=== PATIENT | female | born 1955 | race American Indian/Alaskan Native ===

== ENCOUNTER 2018-06-11 13:22 | Outpatient (CLI) | payer MEDICAID ==
--- NOTE | 2018-06-11 14:35 | XRay Report ---
RIGHT HUMERUS: History: Pain. AP and lateral views of the humerus demonstrate normal mineralization and contours for this patient's age. No destructive changes are noted and the adjacent soft tissues are normal. IMPRESSION: Normal right humerus.
--- NOTE | 2018-06-11 14:36 | XRay Report ---
RIGHT SHOULDER, 3 VIEWS: HISTORY: right shoulder pain. Normal bone mineralization. No acute osseous injury or joint pathology is detected. The soft tissues are unremarkable. IMPRESSION: Right shoulder within normal limits.
--- NOTE | 2018-06-11 14:36 | XRay Report ---
RIGHT FOREARM: History: Pain. AP and lateral views of the forearm demonstrate normal mineralization and contours for this patient's age. No destructive changes are noted and the adjacent soft tissues are normal. Previous internal fixation of an ulnar fracture is noted and unremarkable. IMPRESSION: Unremarkable right forearm.
== END 2018-06-11 13:23 | disposition home or self-care (01) ==
LOC: XRAY 13:22
PROVIDERS: ATTEND Internal Medicine
DX: S52.201D Unspecified fracture of shaft of right ulna, subsequent encounter for closed fracture with routine healing (principal); M25.511 Pain in right shoulder; M79.601 Pain in right arm; Z88.6 Allergy status to analgesic agent; X58.XXXD Exposure to other specified factors, subsequent encounter

== ENCOUNTER 2020-05-09 09:37 | Emergency (ER) | payer MEDICAID ==
[2020-05-09 10:10] VITALS: BP 129/56
--- NOTE | 2020-05-09 10:48 | Event Note ---
ED Screening Note Date of service: 05/09/20 Time: 10:47 ED Screening Note: 64 yr old female with pmhx of CAD/OK, and CVA currently on eliquis presents to ED c/o hematuria since yesterday. She reports associated urinary frequency, generalized fatigue and weakness. This initial assessment/diagnostic orders/clinical plan/treatment(s) is/are subject to change based on patients health status, clinical progression and re- assessment by fellow clinical providers in the ED. Further treatment and workup at subsequent clinical providers discretion. Patient/guardian urged not to elope from the ED as their condition may be serious if not clinically assessed and managed. Initial orders include: CBC, CMP, UA
[2020-05-09 11:34] LABS: Alanine Aminotransferase 12 units/L (7-56); Albumin 3.5 g/dL (3.9-5); BUN/Creatinine Ratio 11; Blood Urea Nitrogen 12 mg/dL (7-17); Calcium 9.8 mg/dL (8.4-10.2); Hemolysis Index 5
[2020-05-09 11:38] LABS: Basophils % (Auto) 0.2 % (0.0-1.8); Eosinophils # (Auto) 0.1 K/mm3 (0.0-0.4); Eosinophils % (Auto) 0.7 % (0.0-4.3); Hematocrit 39.5 % (30.3-42.9); Hemoglobin 12.7 gm/dl (10.1-14.3); Lymphocytes # (Auto) 2.1 K/mm3 (1.2-5.4); Lymphocytes % (Auto) 28.1 % (13.4-35.0); Mean Corpuscular HGB Conc 32 % (30-34); Mean Corpuscular Volume 80 fl (79-97); Monocytes # (Auto) 0.9 K/mm3 (0.0-0.8); Monocytes % (Auto) 12.2 % (0.0-7.3); Platelet Count 340 K/mm3 (140-440); Red Blood Count 4.95 M/mm3 (3.65-5.03)
[2020-05-09 12:18] LABS: INR 1.13 (0.87-1.13)
[2020-05-09 12:19] LABS: Partial Thromboplastin Time 34.4 Sec. (24.2-36.6)
--- NOTE | 2020-05-09 12:36 | Emergency Department Report ---
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 Patient presented to the ER complaining of blood in the urine since yesterday. Patient stated that she is taking blood thinner but she does not know the name of it and she did not bring her medication list with her. Patient denied any burning sensation with urine. Patient also denied any abdominal pain or flank pain. Patient denied any hemoptysis, hematemesis, hematochezia or melena. No fever or chills. - Related Data Allergies Allergy/AdvReac Type Severity Reaction Status Date / Time codeine Allergy SHAKING,SWE Unverified 06/11/18 13:23 [facility] ED Review of Systems ROS: Stated complaint: BLOOD IN URINE Other details as noted in HPI Comment: All other systems reviewed and negative Constitutional: denies: chills, fever Respiratory: denies: cough, shortness of breath, SOB with exertion, SOB at rest Cardiovascular: denies: chest pain, palpitations Gastrointestinal: denies: abdominal pain, nausea, vomiting Genitourinary: hematuria. denies: urgency, dysuria, frequency, discharge Musculoskeletal: denies: back pain Neurological: denies: headache, weakness, confusion ED Past Medical Hx - Past Medical History Previous Medical History?: Yes Hx Hypertension: Yes Hx CVA: Yes Hx Diabetes: Yes - Surgical History Past Surgical History?: Yes Hx Open Heart Surgery: Yes (2017) - Social History Smoking Status: Former Smoker Substance Use Type: Alcohol ED Physical Exam - General Limitations: Physical Limitation General appearance: alert, in no apparent distress - Head Head exam: Present: atraumatic, normocephalic, normal inspection - Eye Eye exam: Present: normal appearance, PERRL - ENT ENT exam: Present: normal orophraynx - Neck Neck exam: Present: normal inspection, full ROM. Absent: tenderness, meningismus - Respiratory Respiratory exam: Present: normal lung sounds bilaterally - Cardiovascular Cardiovascular Exam: Present: regular rate, normal rhythm, normal heart sounds - GI/Abdominal GI/Abdominal exam: Present: soft, normal bowel sounds. Absent: distended, tenderness, guarding, rebound, rigid, organomegaly, mass, bruit, pulsatile mass, hernia - Extremities Exam Extremities exam: Present: normal inspection, full ROM, normal capillary refill. Absent: tenderness, pedal edema, calf tenderness - Back Exam Back exam: Present: normal inspection, full ROM. Absent: CVA tenderness (R), CVA tenderness (L) - Neurological Exam Neurological exam: Present: alert, oriented X3, motor sensory deficit (Chronic left upper and lower extremity weakness.), reflexes normal - Psychiatric Psychiatric exam: Present: normal mood - Skin Skin exam: Present: warm, intact, normal color ED Course Vital Signs 05/09/20 10:06 Temperature 98.6 F Pulse Rate 64 Respiratory 18 Rate Blood Pressure 129/56 O2 Sat by Pulse 99 Oximetry ED Medical Decision Making - Lab Data Result diagrams: 05/09/20 10:54 05/09/20 10:54 - Medical Decision Making Patient is 64 years old female with history 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 Patient presented to the ER complaining of blood in the urine since yesterday. Patient stated that she is taking blood thinner but she does not know the name of it and she did not bring her medication list with her. Patient denied any burning sensation with urine. Patient also denied any abdominal pain or flank pain. Patient denied any hemoptysis, hematemesis, hematochezia or melena. No fever or chills. Patient remained stable in the ER. Labs reviewed and is unremarkable except for positive for UTI. Patient given prescription for ciprofloxacin and advised to follow-up with her primary doctor in the next 2 to 3 days and to return to the ER if she develop any new symptoms. Critical care attestation.: If time is entered above; I have spent that time in minutes in the direct care of this critically ill patient, excluding procedure time. ED Disposition Clinical Impression: UTI (urinary tract infection), Hematuria Disposition: TO HOME OR SELFCARE Is pt being admited?: No Condition: Stable Instructions: Urinary Tract Infection, Adult, [id number] Referrals: PRIMARY CARE, [Referring] - 3-5 Days
[2020-05-09 14:40] LABS: Bacteria,Urine 4+ /HPF (Negative); Bilirubin,Urine NEG (Negative); Blood,Urine LG (Negative); Color,Urine Yellow (Yellow); Mucus,Urine 2+ /HPF
[2020-05-09 14:46] LABS: RBC,Urine > 182.0 /HPF (0.0-6.0); WBC,Urine > 182.0 /HPF (0.0-6.0)
== END 2020-05-09 15:46 | disposition home or self-care (01) ==
LOC: ED 09:37
DX: N39.0 Urinary tract infection, site not specified (principal); R31.9 Hematuria, unspecified; I10 Essential (primary) hypertension; E11.9 Type 2 diabetes mellitus without complications; Z86.73 Personal history of transient ischemic attack (TIA), and cerebral infarction without residual deficits; Z98.890 Other specified postprocedural states; Z87.891 Personal history of nicotine dependence; Z88.8 Allergy status to other drugs, medicaments and biological substances
CPT/HCPCS: 36415; 80053; 81001; 85025; 85610; 85730; 87086

== ENCOUNTER 2020-11-20 03:51 | Emergency (ER) | payer MEDICAID ==
--- NOTE | 2020-11-20 05:41 | XRay Report ---
XR foot 2V LT INDICATION: foot pain blunt trauma. COMPARISON: No relevant prior imaging study available. FINDINGS: There is a minimally displaced transverse fracture through the distal shaft of the proximal phalanx o f the third toe. No additional fractures are seen. No significant soft tissue abnormality. IMPRESSION: 1. Proximal phalanx third toe fracture. Signer Name: Bonilla Mas MD Signed: 11/20/2020 5:37 AM Workstation Name: [id number]
--- NOTE | 2020-11-20 08:42 | Emergency Department Report ---
ED General Adult HPI - General Chief complaint: Extremity Injury, Lower Stated complaint: LEFT FOOT/TOE PAIN Time Seen by Provider: 11/20/20 08:09 Source: patient Mode of arrival: Wheelchair Limitations: No Limitations - History of Present Illness Initial comments: 65-year-old -[place] female patient presents with complaints of left foot pain and toenail avulsion x last night. Patient states she fell in the tub and twisted her foot. She denies any head trauma or preceding dizziness/chest pain/shortness of breath. She rates her current pain as a 8/10 in severity. Patient is on blood thinners. She any denies headache. Past medical history includes hypertension, CVA, and diabetes -: Sudden - Related Data Previous Rx's Medication Instructions Recorded Last Taken Type Ciprofloxacin HCl 500 mg PO BID #14 tablet 05/09/20 Unknown Rx Acetaminophen [Acetaminophen TAB] 500 - 1,000 mg PO Q8HR PRN #30 11/20/20 Unknown Rx tablet Mupirocin [Bactroban 2% OINT] 1 applic TP TID 10 Days #1 tube 11/20/20 Unknown Rx cephALEXin [Keflex] 500 mg PO Q12HR 7 Days #14 cap 11/20/20 Unknown Rx traMADoL [Ultram 50 MG tab] 50 mg PO Q6HR PRN #10 tablet 11/20/20 Unknown Rx Allergies Allergy/AdvReac Type Severity Reaction Status Date / Time codeine Allergy SHAKING,SWE Unverified 06/11/18 13:23 [facility] ED Review of Systems ROS: Stated complaint: LEFT FOOT/TOE PAIN Other details as noted in HPI Constitutional: denies: malaise Respiratory: denies: cough, shortness of breath Cardiovascular: denies: chest pain Musculoskeletal: arthralgia Skin: denies: change in color Neurological: denies: headache, weakness, numbness, paresthesias ED Past Medical Hx - Past Medical History Previous Medical History?: Yes Hx Hypertension: Yes Hx CVA: Yes Hx Diabetes: Yes - Surgical History Past Surgical History?: Yes Hx Open Heart Surgery: Yes (2016) - Social History Smoking Status: Former Smoker Substance Use Type: Alcohol - Medications Home Medications: Home Medications Medication Instructions Recorded Confirmed Last Taken Type Ciprofloxacin HCl 500 mg PO BID #14 tablet 05/09/20 Unknown Rx Acetaminophen [Acetaminophen TAB] 500 - 1,000 mg PO Q8HR PRN #30 11/20/20 Unknown Rx tablet Mupirocin [Bactroban 2% OINT] 1 applic TP TID 10 Days #1 tube 11/20/20 Unknown Rx cephALEXin [Keflex] 500 mg PO Q12HR 7 Days #14 cap 11/20/20 Unknown Rx traMADoL [Ultram 50 MG tab] 50 mg PO Q6HR PRN #10 tablet 11/20/20 Unknown Rx ED Physical Exam - General Limitations: No Limitations General appearance: alert, in no apparent distress - Head Head exam: Present: atraumatic, normocephalic - Eye Eye exam: Absent: scleral icterus - Respiratory Respiratory exam: Absent: respiratory distress - Cardiovascular Cardiovascular Exam: Present: regular rate - GI/Abdominal GI/Abdominal exam: Present: soft. Absent: tenderness - Expanded Lower Extremity Exam Left Ankle exam: Present: normal inspection Foot/Toe exam: Present: tenderness (Tenderness to palpation noted to first through fourth digits), nail avulsion (Great toe). Absent: ecchymosis Neuro vascular tendon exam: Present: no vascular compromise. Absent: pulse deficit Gait: Positive: unable to bear weight - Neurological Exam Neurological exam: Present: alert, oriented X3 - Psychiatric Psychiatric exam: Present: normal affect, normal mood - Skin Skin exam: Present: warm, dry, normal color. Absent: rash ED Course Vital Signs 11/20/20 04:32 Temperature 98 F Pulse Rate 79 Respiratory 16 Rate Blood Pressure 180/74 [Right] O2 Sat by Pulse 99 Oximetry ED Medical Decision Making - Radiology Data Radiology results: report reviewed XR foot 2V LT INDICATION: foot pain blunt trauma. COMPARISON: No relevant prior imaging study available. FINDINGS: There is a minimally displaced transverse fracture through the distal shaft of the proximal phalanx of the third toe. No additional fractures are seen. No significant soft tissue abnormality. IMPRESSION: 1. Proximal phalanx third toe fracture. - Medical Decision Making 65-year-old -[place] female patient presents with complaints of left foot pain and toenail avulsion x last night. Patient states she fell in the tub and twisted her foot. She denies any head trauma or preceding dizziness/chest pain/shortness of breath. She rates her current pain as a 8/10 in severity. Patient is on blood thinners. She any denies headache X-ray shows fracture of the third left toe with minimal displacement. Nail avulsion of the left great toe noted on exam. Irrigated and cleaned with Betadine. Neosporin and sterile dressing placed on wound. Patient to follow-up with podiatry within 2 to 3 days. Discussed wound care and signs and symptoms that should prompt immediate return to the emergency department in detail with patient verbalizes understanding. She is otherwise well-appearing and stable for discharge home. Critical care attestation.: If time is entered above; I have spent that time in minutes in the direct care of this critically ill patient, excluding procedure time. ED Disposition Clinical Impression: Avulsion of toenail of left foot Fracture of third toe, left, closed Qualifiers: Encounter type: initial encounter Qualified Code(s): S92.502A - Displaced unspecified fracture of left lesser toe(s), initial encounter for closed fracture Disposition: 01 HOME / SELF CARE / HOMELESS Is pt being admited?: No Condition: Stable Instructions: Toe Fracture, [id number] Prescriptions: Acetaminophen [Acetaminophen TAB] 500 - 1,000 mg PO Q8HR PRN #30 tablet PRN Reason: pain Mupirocin [Bactroban 2% OINT] 1 applic TP TID 10 Days #1 tube cephALEXin [Keflex] 500 mg PO Q12HR 7 Days #14 cap traMADoL [Ultram 50 MG tab] 50 mg PO Q6HR PRN #10 tablet PRN Reason: Pain , Severe (7-10) Referrals: [facility] [Provider Group] - 2-3 Days SILVIA HARTLEY DPM [Staff Physician] - 2-3 Days (Toe fracture, nail avulsion )
[2020-11-20] MEDS ORDERED: ACETAMINOPHEN 500 MG TAB PO STA (08:44)
[2020-11-20] MEDS ORDERED: HYDROcodone/ACETAMINOPHEN 5-325 MG TAB PO ONE (08:50)
[2020-11-20] MEDS ORDERED: NEOMY 3.5 MG/BACIT 400 UNITS/POLY B 5000 UNITS/GM OINT PACKET TP STA (10:10)
[2020-11-20 11:14] VITALS: BP 159/71
== END 2020-11-20 11:14 | disposition home or self-care (01) ==
LOC: ED 03:51
DX: S92.512A Displaced fracture of proximal phalanx of left lesser toe(s), initial encounter for closed fracture (principal); S91.209A Unspecified open wound of unspecified toe(s) with damage to nail, initial encounter; I10 Essential (primary) hypertension; Z86.73 Personal history of transient ischemic attack (TIA), and cerebral infarction without residual deficits; E11.8 Type 2 diabetes mellitus with unspecified complications; Z98.890 Other specified postprocedural states; Z87.891 Personal history of nicotine dependence; Z88.5 Allergy status to narcotic agent; W19.XXXA Unspecified fall, initial encounter; Y93.89 Activity, other specified; Y92.89 Other specified places as the place of occurrence of the external cause; Y99.8 Other external cause status
CPT/HCPCS: 73620; 99284; A6250